=== PATIENT | male | born 1940 | race Caucasian/White ===

== ENCOUNTER 2020-09-02 11:34 | Emergency (ER) | payer MEDICARE ==
[2020-09-02] MEDS ORDERED: BISACODYL 10 MG SUPP.RECT RC ONE (13:08)
[2020-09-02 13:09] LABS: APPEARANCE,URINE Clear (CLEAR); BILIRUBIN,URINE Negative (NEGATIVE); COLOR,URINE Yellow (YELLOW); GLUCOSE, URINE (UA) Negative (NEGATIVE); KETONES,URINE Negative (NEGATIVE); LEUKOCYTE ESTERASE ,URINE Negative (NEGATIVE); NITRATE,URINE Negative (NEGATIVE); OCCULT BLOOD,URINE Negative (NEGATIVE); PH,URINE 5.5 (5.0-8.0); PROTEIN,URINE Negative (NEGATIVE); UROBILINOGEN,URINE 0.2 mg/dL (0.2-1.0)
[2020-09-02 13:41] LABS: BASOPHILS % (AUTO) 0.2 % (0.0-5.0); EOSINOPHILS % (AUTO) 0.3 % (0.0-8.0); HEMATOCRIT 39.3 % (42-54); LYMPHOCYTES % (AUTO) 7.9 % (21.0-51.0); MEAN CORPUSCULAR HEMOGLOBIN 30.5 pg (27.0-33.0); MEAN CORPUSCULAR HGB CONC 33.1 g/dL (32.0-36.0); MEAN CORPUSCULAR VOLUME 92.3 fL (79-99); MONOCYTES % (AUTO) 6.8 % (3.0-13.0); NEUTROPHILS % (AUTO) 84.4 % (40.0-77.0); PLATELET COUNT (AUTO) 209 K/uL (130-400); RED BLOOD CELL COUNT(AUTO) 4.26 MIL/uL (4.50-6.20); RED CELL DISTRIBUTION WIDTH 13.6 % (11.0-15.5); WHITE BLOOD COUNT (AUTO) 12.4 K/uL (4.8-10.8)
[2020-09-02 14:30] LABS: POTASSIUM 3.6 mmol/L (3.5-5.1)
[2020-09-02 14:34] LABS: ALBUMIN 3.8 g/dL (3.5-5.0); BILIRUBIN,TOTAL 0.8 mg/dL (0.2-1.0)
== END 2020-09-02 16:02 | disposition home or self-care (01) ==
LOC: EDH 11:34
DX: K59.00 Constipation, unspecified (principal); R33.9 Retention of urine, unspecified
CPT/HCPCS: 36415; 51702; 74018; 80053; 81003; 83605; 85025

== ENCOUNTER 2020-09-12 21:42 | Inpatient (IN) | payer MEDICARE ==
[~2020-09-12] VITALS: Ht 177.8 cm; Wt 78.9 kg
[2020-09-13 00:07] LABS: APPEARANCE,URINE TURBID (CLEAR); BILIRUBIN,URINE LARGE (NEGATIVE); COLOR,URINE RED (YELLOW); GLUCOSE, URINE (UA) 100 mg/dL (NEGATIVE); KETONES,URINE 15 mg/dL (NEGATIVE); LEUKOCYTE ESTERASE ,URINE MODERATE (NEGATIVE); NITRATE,URINE POSITIVE (NEGATIVE); OCCULT BLOOD,URINE MODERATE (NEGATIVE); PROTEIN,URINE >=300 mg/dL (NEGATIVE)
[2020-09-13 00:45] LABS: BACTERIA,URINE Moderate /HPF (None Seen); RBC,URINE Full Field /HPF (0-1)
[2020-09-13 00:46] LABS: BASOPHILS % (AUTO) 0.5 % (0.0-5.0); EOSINOPHILS % (AUTO) 3.6 % (0.0-8.0); HEMATOCRIT 31.9 % (42-54); LYMPHOCYTES % (AUTO) 16.3 % (21.0-51.0); MEAN CORPUSCULAR HEMOGLOBIN 30.1 pg (27.0-33.0); MEAN CORPUSCULAR HGB CONC 33.5 g/dL (32.0-36.0); MEAN CORPUSCULAR VOLUME 89.9 fL (79-99); MONOCYTES % (AUTO) 7.9 % (3.0-13.0); NEUTROPHILS % (AUTO) 71.3 % (40.0-77.0); PLATELET COUNT (AUTO) 255 K/uL (130-400); RED BLOOD CELL COUNT(AUTO) 3.55 MIL/uL (4.50-6.20); RED CELL DISTRIBUTION WIDTH 12.9 % (11.0-15.5)
[2020-09-13 00:47] LABS: CREATININE 0.9 mg/dL (0.5-1.5)
[2020-09-13] MEDS: CEFTRIAXONE SODIUM 1 GM IV SCH ×3 (02:30→20:21)
[2020-09-13] MEDS ORDERED: MORPHINE SULFATE 2 MG/ML 1ML SYG IV PRN (02:30)
[2020-09-13] MEDS ORDERED: CEFTRIAXONE SODIUM 1 GM ONE (03:04)
[2020-09-13 04:35] VITALS: BP 124/94
[2020-09-13 06:05] LABS: BASOPHILS % (AUTO) 0.7 % (0.0-5.0); EOSINOPHILS % (AUTO) 3.5 % (0.0-8.0); HEMATOCRIT 32.8 % (42-54); LYMPHOCYTES % (AUTO) 17.4 % (21.0-51.0); MEAN CORPUSCULAR HEMOGLOBIN 30.2 pg (27.0-33.0); MEAN CORPUSCULAR HGB CONC 33.2 g/dL (32.0-36.0); MEAN CORPUSCULAR VOLUME 90.9 fL (79-99); MONOCYTES % (AUTO) 8.1 % (3.0-13.0); NEUTROPHILS % (AUTO) 69.9 % (40.0-77.0); PLATELET COUNT (AUTO) 249 K/uL (130-400); RED BLOOD CELL COUNT(AUTO) 3.61 MIL/uL (4.50-6.20); WHITE BLOOD COUNT (AUTO) 8.5 K/uL (4.8-10.8)
[2020-09-13 06:21] LABS: BILIRUBIN,TOTAL 0.6 mg/dL (0.2-1.0); POTASSIUM 4.3 mmol/L (3.5-5.1); TOTAL PROTEIN, SERUM 6.8 g/dL (6.0-8.3)
[2020-09-13 08:01] VITALS: BP 148/77
[2020-09-13] MEDS: FAMOTIDINE/PF 20 MG/2 ML VIAL IV SCH ×2 (09:21→20:21)
[2020-09-13 11:43] VITALS: BP 158/85
[2020-09-13 16:09] VITALS: BP 157/97
[2020-09-13 20:00] VITALS: BP 164/88
[2020-09-14] VITALS (7 sets, daily range): BP systolic 133–158; BP diastolic 77–94
[2020-09-14 05:21] LABS: HEMATOCRIT 33.6 % (42-54); MEAN CORPUSCULAR HEMOGLOBIN 29.8 pg (27.0-33.0); MEAN CORPUSCULAR VOLUME 90.3 fL (79-99); RED BLOOD CELL COUNT(AUTO) 3.72 MIL/uL (4.50-6.20); RED CELL DISTRIBUTION WIDTH 12.6 % (11.0-15.5); WHITE BLOOD COUNT (AUTO) 11.2 K/uL (4.8-10.8)
[2020-09-14 05:44] LABS: CARBON DIOXIDE 26 mmol/L (21-32); CHLORIDE 99 mmol/L (101-111); CREATININE 0.9 mg/dL (0.5-1.5); GLOMERULAR FILTR. RATE CALC 86 mL/min (>60); GLUCOSE,RANDOM 97 mg/dL (70-105); PHOSPHORUS 3.7 mg/dL (2.5-4.9); POTASSIUM 4.2 mmol/L (3.5-5.1); SODIUM SERUM 136 mmol/L (136-145); UREA NITROGEN, BLOOD 9 mg/dL (7-18)
[2020-09-14] MEDS: FAMOTIDINE/PF 20 MG/2 ML VIAL IV SCH ×2 (10:08→20:36)
[2020-09-14] MEDS: CEFTRIAXONE SODIUM 1 GM IV SCH (14:54)
[2020-09-14] MEDS: ACETAMINOPHEN 325 MG TAB PO PRN ×2 (14:55→21:01)
[2020-09-15] MEDS: CEFTRIAXONE SODIUM 1 GM IV SCH ×2 (02:33→15:42)
[2020-09-15 03:54] VITALS: BP 139/89
[2020-09-15 05:54] LABS: BASOPHILS % (AUTO) 0.6 % (0.0-5.0); EOSINOPHILS % (AUTO) 5.7 % (0.0-8.0); LYMPHOCYTES % (AUTO) 19.4 % (21.0-51.0); MEAN CORPUSCULAR HEMOGLOBIN 29.5 pg (27.0-33.0); MEAN CORPUSCULAR HGB CONC 32.9 g/dL (32.0-36.0); MEAN CORPUSCULAR VOLUME 89.5 fL (79-99); MONOCYTES % (AUTO) 7.5 % (3.0-13.0); NEUTROPHILS % (AUTO) 66.3 % (40.0-77.0); PLATELET COUNT (AUTO) 315 K/uL (130-400); RED CELL DISTRIBUTION WIDTH 12.7 % (11.0-15.5); WHITE BLOOD COUNT (AUTO) 9.4 K/uL (4.8-10.8)
[2020-09-15 06:14] LABS: CREATININE 0.8 mg/dL (0.5-1.5); POTASSIUM 3.7 mmol/L (3.5-5.1)
[2020-09-15 08:10] VITALS: BP 132/85
[2020-09-15] MEDS: METOPROLOL TARTRATE 25 MG TAB PO SCH ×2 (09:47→15:42)
[2020-09-15] MEDS: FAMOTIDINE/PF 20 MG/2 ML VIAL IV SCH (09:47)
[2020-09-15 12:00] VITALS: BP 117/80
[2020-09-15] MEDS: ACETAMINOPHEN 325 MG TAB PO PRN (12:21)
[2020-09-15 16:00] VITALS: BP 149/89
== END 2020-09-15 17:45 | disposition home or self-care (01) | DRG 699 ==
LOC: EDH 21:42 → EDHIP 09-13 02:25 → 3CH 09-13 03:29
PROVIDERS: ADMIT Internal Medicine; ATTEND Internal Medicine
DX: T83.091A Other mechanical complication of indwelling urethral catheter, initial encounter (principal); N39.0 Urinary tract infection, site not specified; I48.19 Other persistent atrial fibrillation; N13.9 Obstructive and reflux uropathy, unspecified; R31.0 Gross hematuria; R33.8 Other retention of urine; L29.9 Pruritus, unspecified; K59.09 Other constipation; N35.819 Other urethral stricture, male, unspecified site; Y84.6 Urinary catheterization as the cause of abnormal reaction of the patient, or of later complication, without mention of misadventure at the time of the procedure; R31.9 Hematuria, unspecified; Z87.891 Personal history of nicotine dependence; Y92.89 Other specified places as the place of occurrence of the external cause; Z79.01 Long term (current) use of anticoagulants; Z92.3 Personal history of irradiation; Z85.46 Personal history of malignant neoplasm of prostate; T45.0X5A Adverse effect of antiallergic and antiemetic drugs, initial encounter
CPT/HCPCS: 36415; 74176; 80048; 80053; 81001; 83605; 83735; 84100; 84145; 85025; 85027; 87077; 87088; 87186; G0378; J0696; J3490

== ENCOUNTER → 2020-12-26 | Outpatient (CLI) | payer MEDICARE | END | disposition home or self-care (01) | LOC: RAH 10:52 | PROVIDERS: ATTEND Internal Medicine Cardiovascular Disease | DX: R60.9 Edema, unspecified (principal) | CPT/HCPCS: 93970 ==

== ENCOUNTER → 2023-05-29 | Outpatient (CLI) | payer MEDICARE ==
[~2023-05-29] MED LIST: GADOTERATE MEGLUMINE 10 MMOL/20 ML VIAL IV ONE
== END | disposition home or self-care (01) ==
LOC: RAH 10:54
PROVIDERS: ATTEND Neurological Surgery
DX: M47.22 Other spondylosis with radiculopathy, cervical region (principal); M43.22 Fusion of spine, cervical region; M48.02 Spinal stenosis, cervical region; M50.11 Cervical disc disorder with radiculopathy, high cervical region
CPT/HCPCS: 72156; A9575

== ENCOUNTER → 2023-07-02 | Outpatient (CLI) | payer MEDICARE ==
[2023-07-02 12:14] LABS: BASOPHILS # (AUTO) 0.05 K/uL (0.00-0.20); BASOPHILS % (AUTO) 0.7 % (0.0-5.0); EOSINOPHILS # (AUTO) 0.24 K/uL (0.00-0.70); EOSINOPHILS % (AUTO) 3.6 % (0.0-8.0); HEMATOCRIT 42.7 % (42-54); IMMATURE GRANULOCYTE ABSOLUTE 0.02 K/uL (0-1); LYMPHOCYTES # (AUTO) 1.8 K/uL (1.0-4.8); LYMPHOCYTES % (AUTO) 26.5 % (21.0-51.0); MEAN CORPUSCULAR HEMOGLOBIN 30.4 pg (27.0-33.0); MEAN CORPUSCULAR HGB CONC 31.9 g/dL (32.0-36.0); MEAN CORPUSCULAR VOLUME 95.5 fL (79-99); MONOCYTES # (AUTO) 0.4 K/uL (0.1-1.0); MONOCYTES % (AUTO) 6.2 % (3.0-13.0); NEUTROPHILS # (AUTO) 4.2 K/uL (1.8-7.7); NEUTROPHILS % (AUTO) 62.7 % (40.0-77.0); PLATELET COUNT (AUTO) 202 K/uL (130-400); RED BLOOD CELL COUNT(AUTO) 4.47 MIL/uL (4.50-6.20); RED CELL DISTRIBUTION WIDTH 14.5 % (11.0-15.5); WHITE BLOOD COUNT (AUTO) 6.8 K/uL (4.8-10.8)
[2023-07-02 12:23] LABS: ALBUMIN 3.8 g/dL (3.5-5.0); BILIRUBIN,TOTAL 0.8 mg/dL (0.2-1.0); CREATININE 1.1 mg/dL (0.5-1.5); POTASSIUM 4.1 mmol/L (3.5-5.1); TOTAL PROTEIN, SERUM 7.3 g/dL (6.0-8.3)
== END | disposition home or self-care (01) ==
LOC: LAB 09:23
PROVIDERS: ATTEND Internal Medicine Cardiovascular Disease
DX: I48.0 Paroxysmal atrial fibrillation (principal); I25.10 Atherosclerotic heart disease of native coronary artery without angina pectoris
CPT/HCPCS: 36415; 80053; 80061; 85025

== ENCOUNTER 2023-07-28 05:57 | Day surgery (SDC) | payer MEDICARE ==
[2023-07-23 17:55] VITALS: BP 121/70; PULSE 83; RESP 20
[2023-07-28] VITALS (23 sets, daily range): BP systolic 123–156; BP diastolic 76–109; PULSE 60–91; RESP 9–18
[~2023-07-28] VITALS: Ht 172.7 cm; Wt 80.5 kg
[~2023-07-28 05:57] MED LIST changes: +ALLERGY RELIEF PO; +AREDS PO; +ATOR40TA71 PO; -GADOTERATE MEGLUMINE 10 MMOL/20 ML VIAL IV ONE; +MELA10CA2 PO; +NAPR220T57 PO; +RIVA20TA PO; +ROPI0.2535 PO; +SOTA80TA PO; +STOOL SOFTENER PO; +TAMS-1 PO
[2023-07-28] MEDS ORDERED: LACTATED RINGERS 1000ML 1,000 ML IV ONE (06:19)
[2023-07-28] MEDS ORDERED: CEFAZOLIN SODIUM 2 GM VIAL ONE (06:19)
[2023-07-28] MEDS ORDERED: ROPIVACAINE 0.5% 5MG/ML 30ML IJ ONE (07:24)
[2023-07-28] MEDS ORDERED: LIDOCAINE PF 100MG/5ML (2%) SYRINGE 5ML ONE (07:25)
[2023-07-28] MEDS ORDERED: ROCURONIUM 10MG/1ML SYR 10 MG/ML ML ONE (07:25)
[2023-07-28] MEDS ORDERED: PROPOFOL 10 MG/ML 20ML VIAL IV ONE (07:25)
[2023-07-28] MEDS ORDERED: PHENYLEPHRINE HCL 10 MG/ML 1ML VIAL IV ONE (07:39)
[2023-07-28] MEDS ORDERED: CEFAZOLIN SODIUM 2 GM VIAL IVPB ONE (07:47)
[2023-07-28] MEDS ORDERED: FENTANYL CITRATE PF 50 MCG/1 ML 2ML VIAL ONE (08:23)
[2023-07-28] MEDS ORDERED: GLYCOPYRROLATE 1 MG/5 ML SYRINGE ONE (08:24)
[2023-07-28] MEDS ORDERED: ONDANSETRON 4MG INJ ONE ×2 (08:24→08:57)
[2023-07-28] MEDS ORDERED: NEOSTIGMINE 5MG/5ML SYR IV ONE (08:24)
[2023-07-28] MEDS ORDERED: TRAM50TA4 PO (08:34)
[2023-07-28] MEDS ORDERED: METH-662 PO (08:34)
[2023-07-28] MEDS ORDERED: DOCU-116 PO (08:34)
[2023-07-28] MEDS ORDERED: GABA-529 PO (08:34)
[2023-07-28] MEDS ORDERED: MEPERIDINE-PF 25 MG/ML SYG ONE (08:56)
[2023-07-28] MEDS ORDERED: KETOROLAC 15MG/ML VIAL (15MG/ML) ONE (08:57)
[2023-07-28] MEDS ORDERED: ACETAMINOPHEN 325 MG TAB ONE (12:09)
== END 2023-07-28 14:30 | disposition home or self-care (01) ==
LOC: DAH 05:57
PROVIDERS: ATTEND Surgery
DX: K40.90 Unilateral inguinal hernia, without obstruction or gangrene, not specified as recurrent (principal); I25.10 Atherosclerotic heart disease of native coronary artery without angina pectoris; E78.5 Hyperlipidemia, unspecified; M19.90 Unspecified osteoarthritis, unspecified site; I45.10 Unspecified right bundle-branch block; I48.91 Unspecified atrial fibrillation; Z98.890 Other specified postprocedural states; Z90.49 Acquired absence of other specified parts of digestive tract; Z79.899 Other long term (current) drug therapy; Z79.01 Long term (current) use of anticoagulants; Z98.49 Cataract extraction status, unspecified eye; Z80.1 Family history of malignant neoplasm of trachea, bronchus and lung; Z80.0 Family history of malignant neoplasm of digestive organs; Z85.46 Personal history of malignant neoplasm of prostate; Z85.048 Personal history of other malignant neoplasm of rectum, rectosigmoid junction, and anus
CPT/HCPCS: 93005; 49505; 64486; A6260; A4663; J7030; A4452; A4344; J7120; J3010; J3490; J2710; J2001; J2704; J2405 ×2; J2175; J2795; J1885; J2371; J0690 ×2; A4649; A4215; A4223; A4222; A4221; A4600

== ENCOUNTER → 2024-08-16 | Outpatient (CLI) | payer MEDICARE ==
[~2024-08-16] MED LIST changes: +DOCU-116 PO; +GABA-529 PO; +METH-662 PO
[2024-08-16 12:09] LABS: BASOPHILS # (AUTO) 0.05 K/uL (0.00-0.20); BASOPHILS % (AUTO) 0.8 % (0.0-5.0); EOSINOPHILS % (AUTO) 3.2 % (0.0-8.0); HEMATOCRIT 41.7 % (42-54); IMMATURE GRANULOCYTE ABSOLUTE 0.03 K/uL (0-1); LYMPHOCYTES # (AUTO) 1.5 K/uL (1.0-4.8); LYMPHOCYTES % (AUTO) 23.3 % (21.0-51.0); MEAN CORPUSCULAR HEMOGLOBIN 31.1 pg (27.0-33.0); MEAN CORPUSCULAR HGB CONC 32.9 g/dL (32.0-36.0); MEAN CORPUSCULAR VOLUME 94.8 fL (79-99); MONOCYTES # (AUTO) 0.5 K/uL (0.1-1.0); MONOCYTES % (AUTO) 7.4 % (3.0-13.0); NEUTROPHILS # (AUTO) 4.1 K/uL (1.8-7.7); NEUTROPHILS % (AUTO) 64.8 % (40.0-77.0); PLATELET COUNT (AUTO) 193 K/uL (130-400); RED CELL DISTRIBUTION WIDTH 13.5 % (11.0-15.5); WHITE BLOOD COUNT (AUTO) 6.3 K/uL (4.8-10.8)
[2024-08-16 12:20] LABS: ALBUMIN 3.9 g/dL (3.5-5.0); BILIRUBIN,TOTAL 1.2 mg/dL (0.2-1.0); CREATININE 1.1 mg/dL (0.5-1.3); TOTAL PROTEIN, SERUM 7.4 g/dL (6.0-8.3)
== END | disposition home or self-care (01) ==
LOC: LAB 09:44
PROVIDERS: ATTEND Internal Medicine Cardiovascular Disease
DX: I48.0 Paroxysmal atrial fibrillation (principal); I25.10 Atherosclerotic heart disease of native coronary artery without angina pectoris
CPT/HCPCS: 36415; 80053; 80061; 85025

== ENCOUNTER 2024-11-13 06:46 | Emergency (ER) | payer MEDICARE ==
[~2024-11-13] VITALS: Ht 177.8 cm; Wt 80.7 kg
[2024-11-13 06:47] VITALS: BP 165/88; PULSE 92; RESP 16; TEMP 98.3
== END 2024-11-13 07:56 | disposition left against medical advice (07) ==
LOC: EDH 06:46
DX: T83.9XXA Unspecified complication of genitourinary prosthetic device, implant and graft, initial encounter (principal); Z53.21 Procedure and treatment not carried out due to patient leaving prior to being seen by health care provider; Y82.9 Unspecified medical devices associated with adverse incidents; Y92.89 Other specified places as the place of occurrence of the external cause

== ENCOUNTER → 2024-11-27 | Emergency (ER) | payer MEDICARE ==
[~2024-11-27] VITALS: Ht 177.8 cm; Wt 79.4 kg
[2024-11-27 13:33] VITALS: BP 130/92; PULSE 89; RESP 18; TEMP 97.8
--- NOTE | 2024-11-27 13:42 | ERN ---
ED Note History of Present Illness Stated Complaint: COLOSTOMY BAG PROBLEM Chief Complaint: Other Problems Time Seen by MD: 13:37 Dictation: PATIENT IS AN 84-YEAR-OLD MALE HERE WITH COMPLAINTS OF HAVING A BORREGO CATHETER WAS PLACED AT [facility] – [place] APPROXIMATELY 5-6 WEEKS AGO FOR URINARY RETENTION. HE STATES A QUIT DRAINING LAST NIGHT. NO FEVER NO CHILLS NO NAUSEA VOMITING. STATES HE HAS NOT SEEN A UROLOGIST YET. URINE COLLECTION BAG TO LEG NOTED TO BE DRY IN TRIAGE. Allergies: Coded Allergies: No Known Drug Allergies (Unverified Allergy, 01/06/14) Home Meds No Active Prescriptions or Reported Meds Past Medical History Past Medical History: Other Additional Past Medical Hx: " NOTHING MAJOR" DOES NOT ANSWER QUESTION Surgical History: Other Surgical History Other: HERNIA REPAIR X 3, NEPHROSTOMY TUBE RN Note Reviewed/Agreed w/PFSH: Yes Review of System Dictation CONSTITUTIONAL: NEGATIVE EXCEPT FOR HPI HEAD/FACE: NEGATIVE EXCEPT FOR HPI EENT: NEGATIVE EXCEPT FOR HPI RESPIRATORY: NEGATIVE EXCEPT FOR HPI GASTROINTESTINAL/ABDOMINAL: NEGATIVE EXCEPT FOR HPI GENITOURINARY: NEGATIVE EXCEPT FOR HPI OBSTRUCTED BORREGO CATHETER MUSCULOSKELETAL: NEGATIVE EXCEPT FOR HPI INTEGUMENTARY: NEGATIVE EXCEPT FOR HPI NEUROLOGICAL/PSYCH: NEGATIVE EXCEPT FOR HPI HEMATOLOGIC/LYMPHATIC: NEGATIVE EXCEPT FOR HPI ALL SYSTEMS NEGATIVE, EXCEPT NOTED ABOVE. 13 POINT REVIEW OF SYSTEMS ASSESSED AND ALL NEGATIVE EXCEPT FOR ABOVE. Initial Vital Sign VS Vital Signs Date Time Temp Pulse Resp B/P (MAP) Pulse Ox O2 Delivery O2 Flow Rate FiO2 11/27/24 13:33 97.9 89 18 130/92 99 Room Air Physical Exam Dictation VITAL SIGNS REVIEWED GENERAL APPEARANCE: ALERT, ORIENTED X 3, NO ACUTE DISTRESS, WELL DEVELOPED, NOURISHED. HEAD AND FACE: NON-TRAUMATIC. EYES: PERRL, PINK CONJUNCTIVAS, EYELID NO TRAUMA, ANTERIOR CHAMBER WITH ARCUS SENILIS. EARS: PINNAS INTACT AND NO SIGNS OF TRAUMA OR ERYTHEMA EAR CANALS CLEAR AND NO DISCHARGE TM NO ERYTHEMA NOSE: NO DISCHARGE, NO BLEEDING. OROPHARYNX: MOUTH NORMAL, TONGUE PINK, PHARYNX CLEAR,NO ERYTHEMA, TONSILS NO EXUDATES, NO ABSCESSES NOTED, MUCOUS MEMBRANE MOIST NECK: SUPPLE, NON-TENDER, NO THYROMEGALY, NO MASSES, NO JVD, NO BRUITS BREAST:DEFERRED CHEST:NO TENDERNESS, NO CREPITUS, NO PARADOXICAL MOVEMENT, NO RETRACTIONS LUNGS:CLEAR, WELL-VENTILATED, SYMMETRIC, NO RALES, NO WHEEZING, NO RHONCHI, NO STRIDOR, GOOD BREATH SOUNDS BILATERALLY HEART: REGULAR RATE, REGULAR RHYTHM, NO MURMUR, NO GALLOPS VASCULAR: NO PERIPHERAL EDEMA, ABDOMEN: SOFT, POSITIVE BOWEL SOUNDS, NONDISTENDED, NO GUARDING, NONTENDER, NO REBOUND, NO MASSES NO HEPATOMEGALY, NO SPLENOMEGALY, NO MEHTA'S SIGN, NO HERNIAS. RECTAL: DEFERRED GENITAL: DEFERRED BORREGO CATHETER IN PLACE WITH BLADDER DISTENTION. LEG BAG DRIED TO LEFT LEG NEUROLOGICAL: NORMAL SPEECH, MOTOR FUNCTION INTACT, SENSORY FUNCTION INTACT MUSCULOSKELETAL: NECK NONTENDER, FULL RANGE OF MOTION, BACK NONTENDER, FULL RANGE OF MOTION, EXTREMITIES: NONTENDER, FULL RANGE OF MOTION SKIN: COLOR PINK, DRY, NO TURGOR, NO RASH, NO LACERATIONS, NO ABRASIONS, NO CONTUSIONS. LYMPHATIC: DEFERRED Results (Laboratory/Radiology) Labs Reviewed?: Yes ED Course ED Course Orders Procedure Category Date Status Time Nurse Driven Borrego FELIPA 11/27/24 In Process Removal Pro 13:40 Urinalysis Profile LAB 11/27/24 Logged 13:40 Vital Signs Date Time Temp Pulse Resp B/P (MAP) Pulse Ox O2 Delivery O2 Flow Rate FiO2 11/27/24 13:33 97.9 89 18 130/92 99 Room Air Medical Decision Making [facility] 1835/PATIENT LEFT WAITING ROOM AGAINST MEDICAL ADVICE AFTER TELLING SECURITY HE WAS LEAVING. DX & DISP Disposition: AMA Departure Impression: Primary Impression: Borrgeo catheter problem Condition: Stable Scripts No Active Prescriptions or Reported Meds Referrals: PERRI VALE (PCP) Time of Disposition: 18:36 I have reviewed the case, and I agree with, Diagnosis and Plan MANOLO THOMPSON MOLDER SWEEP Nov 27, 2024 13:42
== END ==
LOC: EDH 13:24
DX: T83.9XXA Unspecified complication of genitourinary prosthetic device, implant and graft, initial encounter (principal); Z98.890 Other specified postprocedural states; Z93.3 Colostomy status; Y82.8 Other medical devices associated with adverse incidents; Y92.89 Other specified places as the place of occurrence of the external cause
CPT/HCPCS: 99281